=== PATIENT | male | born 1990 | race American Indian/Alaskan Native ===

== ENCOUNTER 2022-04-02 19:45 | Emergency (ER) | payer SELFPAY ==
[2022-04-02 19:58] VITALS: BP 126/76
--- NOTE | 2022-04-02 20:31 | Cat Scan Report ---
CT head/brain wo con INDICATION / CLINICAL INFORMATION: 31 years Male; head injury. TECHNIQUE: Routine CT head without contrast. All CT scans at this location are performed using CT dos e reduction for ALARA by means of automated exposure control. COMPARISON: None. FINDINGS: BRAIN / INTRACRANIAL CONTENTS: There is a very small focus of decreased signal along the posterior li mb of the right internal capsule which is of CSF density and may reflect prominent perivascular space , an incidental finding. The ventricular system is within normal limits in size and configuration. Th ere is no clear CT evidence of acute intracranial hemorrhage or significant mass effect. ORBITS: No significant abnormality of visualized orbits. SINUSES / MASTOIDS: No significant abnormality in the visualized paranasal sinuses or mastoid air kerri ls. CRANIOCERVICAL JUNCTION: No significant abnormality. ADDITIONAL FINDINGS: There is a small incidental lipoma involving right frontal scalp. IMPRESSION: 1. There is no clear CT evidence of acute intracranial process. Signer Name: Manjit Davis MD Signed: 04/02/2022 8:26 PM Workstation Name: [id number]
== END 2022-04-02 22:00 | disposition left against medical advice (07) ==
LOC: ED 19:45
DX: S09.90XA Unspecified injury of head, initial encounter (principal); Z53.21 Procedure and treatment not carried out due to patient leaving prior to being seen by health care provider; W22.09XA Striking against other stationary object, initial encounter; Y93.89 Activity, other specified; Y92.89 Other specified places as the place of occurrence of the external cause; Y99.8 Other external cause status
CPT/HCPCS: 70450

== ENCOUNTER 2022-04-28 09:39 | Emergency (ER) | payer SELFPAY ==
--- NOTE | 2022-04-28 15:00 | Emergency Department Report ---
ED Rash HPI - HPI Chief Complaint: Allergic Reaction Stated Complaint: ALLERGIC REACTION Location: Head Suspected Cause: Unknown Rash Symptoms: Yes Itching, No Facial Swelling, No Tongue/Oral Swelling, No Breathing Difficulties, No Choking Sensation, No Wheezing/Dyspnea, No Peeling, No Blistering, No Fever, No Lightheaded, No Malaise, No Myalgias Severity: moderate Other History: 31-year-old male presents to the ED with rash noted to his head x1 month. He states that he had prior rash in the past and was treated for contact dermatitis due to his cowboy hat but continues to wear his hats. Patient has multiple circular lesion with loss of hair noted . He states that he is just moved here from [place] and do not have a primary care doctor. He states that he came to the ED to see if we can find out what is causing rash. Patient denies any fever ,chills or nausea vomiting at present. Patient is alert and oriented x3. No acute distress noted. No ill appearance noted. ED Review of Systems ROS: Stated complaint: ALLERGIC REACTION Other details as noted in HPI Constitutional: denies: chills, fever Eyes: denies: eye pain, eye discharge, vision change ENT: denies: ear pain, throat pain Respiratory: denies: cough, shortness of breath, wheezing Cardiovascular: denies: chest pain, palpitations Endocrine: no symptoms reported Gastrointestinal: denies: abdominal pain, nausea, diarrhea Genitourinary: denies: urgency, dysuria Musculoskeletal: denies: back pain, joint swelling, arthralgia Skin: rash. denies: lesions Neurological: denies: headache, weakness, paresthesias Psychiatric: denies: anxiety, depression Hematological/Lymphatic: denies: easy bleeding, easy bruising ED Past Medical Hx - Past Medical History Previous Medical History?: Yes Additional medical history: allergic reaction - Surgical History Past Surgical History?: Yes - Medications Home Medications: Home Medications Medication Instructions Recorded Confirmed Last Taken Type Fluconazole [Diflucan TAB] 200 mg PO QDAY #1 tablet 04/28/22 Unknown Rx Ketoconazole 2% [Nizoral] 1 applicatio TP QDAY 7 Days #1 tube 04/28/22 Unknown Rx Rash Exam - Exam General: Vital signs noted. No distress. Alert and acting appropriately. HEENT: No Periorbital Edema, No Conjuctival Injection, No Chemosis, No Perioral Edema, No Tongue Edema, No Uvular Edema, No Compromised Airway, No Drooling Lungs: Yes Good Air Exchange (Normal Breath Sounds), No Wheezes, No Ronchi, No Stridor, No Cough, No Labored Respirations, No Retractions, No Use of Accessory Muscles, No Other Abnormal Lung Sounds Heart: Yes Regular, No Murmur Skin: No Other (round scaling plaques) Other: Positive: Abdomen Normal, Neurologic Normal, Musculoskeletal Normal ED Course Vital Signs 04/28/22 09:48 Temperature 98.7 F Pulse Rate 68 Respiratory 20 Rate Blood Pressure 120/65 [Right] O2 Sat by Pulse 97 Oximetry ED Medical Decision Making - Medical Decision Making 31-year-old male presents to the ED with rash noted to his head x1 month. He states that he had prior rash in the past and was treated for contact dermatitis due to his cowboy hat but continues to wear his hats. Patient has multiple circular lesion with loss of hair noted . He states that he is just moved here from [place] and do not have a primary care doctor. He states that he came to the ED to see if we can find out what is causing rash. Patient denies any fever ,chills or nausea vomiting at present. Patient is alert and oriented x3. No acute distress noted. No ill appearance noted. . Physical examination patient has round scaly patch noted to to his hair scalp and on his face. States pruritus and rash. Rechecked the patient is resting quietly quietly and comfortable and feeling better. I discussed the results of diagnostic study, my clinical impression and the plan for further treatment with the patient. Patient agrees with plan and discharge at this present time. All question addressed. I have given the patient instruction regarding a diagnosis ,expectation ,follow- up and return precaution. I explained to the patient that emergent condition may arise and to return to the ED for new worsen and any new persisting condition. I have explained the importance of following up with the primary care physician or referral physician listed below has instructed. The patient verbalized understanding of discharge instruction. Critical care attestation.: If time is entered above; I have spent that time in minutes in the direct care of this critically ill patient, excluding procedure time. ED Disposition Clinical Impression: Tinea corporis Disposition: HOME / SELF CARE / HOMELESS Is pt being admited?: No Does the pt Need Aspirin: No Condition: Stable Instructions: Body Ringworm Additional Instructions: Take medication as prescribed Follow-up with dermatology of your choice Prescriptions: Fluconazole [Diflucan TAB] 200 mg PO QDAY #1 tablet Ketoconazole 2% [Nizoral] 1 applicatio TP QDAY 7 Days #1 tube Referrals: JIMENA LOPES MD [Primary Care Provider] - 3-5 Days Forms: Work/School Release Form(ED) Time of Disposition: 15:29
[2022-04-28 15:47] VITALS: BP 148/79
== END 2022-04-28 15:47 | disposition home or self-care (01) ==
LOC: ED 09:39
DX: B35.4 Tinea corporis (principal); Z98.890 Other specified postprocedural states
CPT/HCPCS: 99282